=== PATIENT | female | born 1975 | race African-American/Black ===

== ENCOUNTER 2018-10-08 03:09 | Emergency (ER) | payer SELFPAY ==
[~2018-10-08] VITALS: Ht 162.6 cm; Wt 117.9 kg
[2018-10-08 03:09] VITALS: BP 164/91
--- NOTE | 2018-10-08 03:29 | Emergency Room Report ---
History of Present Illness General Chief Complaint: Altered Level of Consciousness Source: EMS Present Illness HPI This is an approximate 43-year-old female who is wheelchair-bound. She was brought in by EMS for altered mental status. She was found unresponsive in her wheelchair at a corner of the street. Per EMS she has pinpoint pupil. No trauma. There is no drug paraphernalia. Unable to get any history and the patient because of her condition. Allergies: Coded Allergies: No Known Allergies (Unverified , 10/08/18) Patient History Past Medical History: see triage record, old chart reviewed Past Surgical History: unable to obtain, other Pertinent Family History: unable to obtain Last Menstrual Period: NA Now: No Immunizations: other Reviewed Nursing Documentation: PMH: Agreed; PSxH: Agreed Nursing Documentation-PMH Past Medical History: No Stated History Review of Systems All Other Systems: limited - Secondary to condition Physical Exam Vital Signs Date Time Temp Pulse Resp B/P (MAP) Pulse Ox O2 Delivery O2 Flow Rate FiO2 10/08/18 03:06 98.1 67 15 130/76 98 Room Air vitals normal Sp02 EP Interpretation: reviewed, normal General Appearance: obese Head: normocephalic, atraumatic Eyes: right eye other - Right eye is cloudy; left eye PERRL - Pupil pinpoint ENT: normal pharynx Neck: full range of motion, supple, no meningismus Respiratory: chest non-tender, lungs clear, normal breath sounds Cardiovascular #1: regular rate, rhythm, no murmur Gastrointestinal: normal bowel sounds, non tender, no mass, no organomegaly, no bruit, non-distended Musculoskeletal: back normal Neurologic: other - No response to painful stimuli Skin: warm/dry Procedures Critical Care Time Critical Care Time Critical care is mandated in this patient who presented with altered mental status secondary to bleed. Patient require my urgent intervention to attenuate the risks of neurological collapse which may lead to cardiovascular collapse and . Critical care time is 35 minutes excluding any reportable procedure. Critical care time included evaluation, multiple reevaluation, looking at old charts, interpreting laboratory and diagnostic data, discussing case with patient and family and consultants, and charting. Intubation Intubation : Consent: Emergent Intubation Method: orotracheal Tube Size (cm): 7.5 Medications: Etomidate, Succinylcholine Breath Sounds after Intubation: equal Intubation Complications: no complications Post Intubation Xray: Yes Progress/Xray Impression: no ptx, ETT above diane Attempts: One Patient Tolerated: Well Complications: None Medical Decision Making Diagnostic Impression: Primary Impression: Intracranial hemorrhage Additional Impression: Hypertensive emergency ER Course Patient presents with an altered mental status and a pinpoint pupil. Even though she was found history I will chair, she does not appear to be disheveled. I went through her belongings and there is no ID. There is no medication. Initially she has pinpoint pupil but does not respond to Narcan. Initial exam showed sonorous respiration but protecting her airway. No response to painful stimuli. CT showed a large bleed. Patient was intubated. Blood pressure after intubation was 191/92. Nicardipine drip started. I discussed the case with Dr. Escamilla at [facility] who accepted pt for transfer. Will transfer as 911 for higher level of care. Lab Results Impression labs unremarkable EKG Diagnostic Results Rate: normal Rhythm: NSR ST Segments: no acute changes ASA given to the pt in ED: No Rhythm Strip Diag. Results Rhythm Strip Time: 05:58 EP Interpretation: yes Rate: 55 Rhythm: NSR, no PVC's, no ectopy Chest X-Ray Diagnostic Results Chest X-Ray Diagnostic Results #1: Chest X-Ray Ordered: Yes # of Views/Limited/Complete: 1 View Indication: Shortness of Breath EP Interpretation: Yes Interpretation: no consolidation, no effusion, no pneumothorax, no acute cardiopulmonary disease Impression: No acute disease Electronically Signed by: Shan Sweet MD Chest X-Ray Diagnostic Results #2: Chest X-Ray Ordered: Yes # of Views/Limited/Complete: 1 View Indication: Other EP Interpretation: Yes Interpretation: no consolidation, no effusion, no pneumothorax, no acute cardiopulmonary disease, other - ETT above diane Impression: Other - successfull post intubation Electronically Signed by: Shan Sweet MD CT/MRI/US Diagnostic Results CT/MRI/US Diagnostic Results : Imaging Test Ordered: CT head Impression read by radiologist. Large right basal ganglia bleed Last Vital Signs Date Time Temp Pulse Resp B/P (MAP) Pulse Ox O2 Delivery O2 Flow Rate FiO2 10/08/18 03:06 98.1 67 15 130/76 98 Room Air Status: unchanged Disposition: XFER SHT-TRM HOSP Condition: Critical Scripts Unable to Obtain Active Prescriptions or Reported Meds Shan Sweet MD Oct 08, 2018 03:29
[2018-10-08] MEDS ORDERED: Naloxone 1mg/ml 2ml IM ONE (03:30)
[2018-10-08] MEDS ORDERED: Naloxone 1mg/ml 2ml IVP ONE (03:45)
[2018-10-08 04:29] LABS: ANION GAP 7 mmol/L (5-15); BLOOD UREA NITROGEN 15 mg/dL (7-18); CALCIUM 10.1 MG/DL (8.5-10.1); CARBON DIOXIDE 31 MMOL/L (21-32); CHLORIDE 104 MMOL/L (98-107); CREATININE 0.9 MG/DL (0.55-1.30); POTASSIUM 3.9 MMOL/L (3.5-5.1); SODIUM 141 MMOL/L (136-145)
[2018-10-08 04:40] LABS: APPEARANCE,URINE CLEAR; BILIRUBIN, URINE NEGATIVE (NEGATIVE); COLOR,URINE PALE YELLOW; GLUCOSE, URINE (UA) 1+ (NEGATIVE); KETONES,URINE NEGATIVE (NEGATIVE); LEUKOCYTE ESTERASE ,URINE NEGATIVE (NEGATIVE); NITRITE,URINE NEGATIVE (NEGATIVE); PH,URINE 8 (4.5-8.0); PROTEIN,URINE 3+ (NEGATIVE); UROBILINOGEN,URINE NORMAL MG/DL (0.0-1.0)
[2018-10-08 04:42] LABS: ALANINE AMINOTRANSFERASE 38 U/L (12-78); ALBUMIN 3.4 G/DL (3.4-5.0); ALBUMIN/GLOBULIN RATIO 0.6 (1.0-2.7); ALKALINE PHOSPHATASE 111 U/L (46-116); ASPARTATE AMINO TRANSFERASE 33 U/L (15-37); BILIRUBIN,TOTAL 0.4 MG/DL (0.2-1.0); CKMB 2.4 NG/ML (0.0-3.6); CREATINE KINASE 117 U/L (26-308)
[2018-10-08 04:47] LABS: EOSINOPHILS % (AUTO) 2.1 % (0.0-3.0); HEMATOCRIT 40.2 % (37.0-47.0); HEMOGLOBIN 13.5 G/DL (12.0-16.0); LYMPHOCYTES % (AUTO) 22.6 % (20.0-45.0); MEAN CORPUSCULAR VOLUME 76 FL (80-99); NEUTROPHILS % (AUTO) 66.4 % (45.0-75.0); PLATELET COUNT 287 K/UL (150-450); RED BLOOD COUNT 5.26 M/UL (4.20-5.40); RED CELL DISTRIBUTION WIDTH 13.9 % (11.6-14.8); WHITE BLOOD COUNT 10.5 K/UL (4.8-10.8)
[2018-10-08] MEDS ORDERED: levETIRAcetam 500mg/NS100ml 100 ML IVPB ONE (05:30)
[2018-10-08 05:37] VITALS: BP 217/112
[2018-10-08] MEDS ORDERED: niCARdipine HCl 200 ML IV SCH (05:45)
[2018-10-08] MEDS ORDERED: Mannitol 20% IV 500 ML ONE (06:03)
[2018-10-08 06:12] VITALS: BP 187/89
[2018-10-08 06:21] VITALS: BP 177/82
[2018-10-08] MEDS ORDERED: Etomidate 40mg/20ml Inj IV ONE (06:30)
[2018-10-08] MEDS ORDERED: Succinylcholine 20mg/ml 10ml vial IV ONE (06:30)
[2018-10-08 06:40] VITALS: BP 148/78
--- NOTE | 2018-10-08 08:56 | Diagnostic Imaging Report ---
Indication: Altered mental status Technique: Contiguous 5 mm thick transaxial imaging of the head obtained in a Siemens Sensation [address] scanner. Soft tissue and bone windows generated. Automatic Exposure Control was utilized. Total Dose length Product (DLP): 1506.[address] Dose Index Volume (CTDIvol): 70.38 mGy Comparison: none Findings: There is evidence of extensive acute intracranial hemorrhage. There is blood within both lateral ventricles third ventricle fourth ventricle foramen of Luschka bilaterally with dilatation of the ventricles indicative of hydrocephalus. The origin of the bleed may be the right thalamus where there is an intraparenchymal hematoma measuring about 4.2 x 3.0 cm on transaxial images. There is surrounding edema and compression of the right lateral ventricle and right to left herniation or midline shift of approximately 1 cm. The suprasellar cistern is visualized. Hint of a quadrigeminal plate cistern is visualized. The cerebral sulci appear relatively effaced in a diffuse fashion. The patient has had previous left frontal temporal craniotomy. The nature of the previous surgery is unknown. IMPRESSION: Extensive acute intracranial hemorrhage with a large right thalamic bleed and extensive intraventricular blood with associated hydrocephalus. Subfalcine herniation approximately 1 cm from right to left. Relative sulcal effacement diffusely. Cerebral edema not excluded. Critical value communication. Findings were transmitted to the emergency room physician by a statrad Dr. Caitlin Castro at 05:19. The CT scanner at [facility] is accredited by the [employer] and the scans are performed using dose optimization techniques as appropriate to a performed exam including Automatic Exposure control.
--- NOTE | 2018-10-08 11:02 | Diagnostic Imaging Report ---
Indication: Dyspnea Comparison: 10/08/2018 at 03:41 A single view chest radiograph was obtained. Findings: There is no change. Lungs are low in volume. There is suggestion of interstitial edema. Endotracheal tube is in good position. IMPRESSION: Endotracheal tube in good position.
--- NOTE | 2018-10-08 11:27 | Diagnostic Imaging Report ---
Indication: Dyspnea Comparison: None A single view chest radiograph was obtained. Findings: Lung volumes are low. Heart is borderline enlarged. Vascularity and interstitium appear mildly prominent. IMPRESSION: Interstitial edema may be present. Correlate clinically
--- NOTE | 2018-10-08 17:52 | Cardiology Report ---
APPROVED REPORT EKG Measurement Heart [id number] Normal sinus rhythm Nonspecific T wave abnormality Abnormal ECG
== END 2018-10-08 06:40 | disposition short-term general hospital (02) ==
LOC: EDBD 03:09 → EMR 03:22
DX: I62.9 Nontraumatic intracranial hemorrhage, unspecified (principal); I16.0 Hypertensive urgency; R06.02 Shortness of breath; Z99.3 Dependence on wheelchair
CPT/HCPCS: 31500; 36415; 70450; 71045; 80053; 80307; 81001; 82550; 82553; 84484; 85025; 85610; 85730; 93005; 94002; 94664; 96361; 96365; 96366; 96372; 96375; 99291; G0480; J0330; J1953; J2150; J2310; 80329